=== PATIENT | male | born 1955 | race Caucasian/White ===

== ENCOUNTER 2017-03-23 10:18 | Emergency (ER) | payer OTHER ==
[~2017-03-23] VITALS: Ht 180.3 cm; Wt 136.1 kg
--- NOTE | ~2017-03-23 | EKG ---
[facility] [place] [address] ELECTROCARDIOGRAM REPORT Name: CARISSA GUILLEN Room #: REG MATT Villarreal#: [id number] Admission: 03/23/17 Attend Phys: Discharge: Date of : 51 Report #: [id number] THIS REPORT FOR: //name// [facility] ED Test Date: 2017-03-23 Test Time: 10:25:40 Pat Name: CARISSA GUILLEN Department: Room: Gender: M Care Rep: Amy DRUMMOND : 1955 Requested By: Gabi Gracia Order Number: [id number] MD: Rocco Gipson Measurements Intervals [place] Rate: 108 P: 95 [place]: 172 QRS: -3 QRSD: 110 T: 90 QT: 329 QTc: 441 Interpretive Statements Sinus tachycardia Probable left atrial enlargement Abnormal R-wave progression, late transition LVH with IVCD and secondary repol abnrm No previous ECG available for comparison Electronically Signed On 03-23-2017 13:58:00 CDT by Rocco Gipson [email or web address] <ELECTRONICALLY SIGNED> By: Rocco Gipson MD 03/23/17 1358 D: 10/1024 24 Rocco Gipson MD /BLAKE
--- NOTE | ~2017-03-23 | EKG ---
[address] [place] [address] ELECTROCARDIOGRAM REPORT Name: CARISSA GUILLEN Room #: DEP MATT Villarreal#: [id number] Admission: 03/23/17 Attend Phys: Discharge: 03/23/17 Date of : 51 Report #: [id number] THIS REPORT FOR: //name// [facility] ED Test Date: 2017-03-23 Test Time: 16:50:06 Pat Name: CARISSA GUILLEN Department: Room: Gender: M Physicist [place]: SUSAN : 1955 Requested By: Gabi Gracia Order Number: [id number] MD: Measurements Intervals [place] Rate: 127 P: 113 [place]: 110 QRS: -6 QRSD: 98 T: 76 QT: 253 QTc: 368 Interpretive Statements Sinus tachycardia Abnormal R-wave progression, late transition LVH with secondary repolarization abnormality Inferior infarct, acute (RCA) Probable RV involvement, suggest recording right precordial leads No previous ECG available for comparison [email or web address] By: 1650 165 Epiphany EpiphanyMD /EPI
--- NOTE | ~2017-03-23 | EKG ---
[address] [place] [address] ELECTROCARDIOGRAM REPORT Name: CARISSA GUILLEN [id number] Admission: 03/23/17 Attend Phys: Discharge: 03/23/17 Date of : 51 Report #: [id number] THIS REPORT FOR: //name// [facility] ED Test Date: 2017-03-23 Test Time: 16:50:06 Pat Name: CARISSA GUILLEN Department: Room: Gender: [employer]: SUSAN : 1955 Requested By: Gabi Gracia Order Number: [id number] MD: Marcellus Guevara Measurements Intervals [place] Rate: 127 P: 113 [place]: 110 QRS: -6 QRSD: 98 T: 76 QT: 253 QTc: 368 Interpretive Statements Sinus tachycardia Abnormal R-wave progression, late transition LVH with secondary repolarization abnormality Cannot rule out inferior infarct, possibly acute Compared to ECG 03/23/2017 10:25:40 Recommend repeat tracing in the absence of baseline artifact Electronically Signed On 03-24-2017 8:43:59 CDT by Marcellus Guevara [email or web address] <ELECTRONICALLY SIGNED> By: Marcellus Guevara MD, [facility] 03/24/17 0843 [id number] 1650 Marcellus Guevara MD, [facility] /EPI
[~2017-03-23 10:18] MED LIST: CREATINE PO; FISHOIL PO; MULTIVITAMINS PO; OSTEO BIFLEX PO; TUMS CHEWA500 MG/11 PO
[2017-03-23 11:01] LABS: HEMATOCRIT 44.6 % (42.0-52.0); HEMOGLOBIN 15.1 gm/dL (14.0-18.0); MCH 26.8 pg (26.0-34.0); MCHC 33.9 g/dL (28.0-37.0); MCV 79.2 fL (80.0-100.0); PLATELET COUNT 223 thou/uL (150-400); RBC 5.63 mil/uL (4.50-6.00); RDW 15.5 % (10.5-14.5); WBC 13.5 thou/uL (4.0-11.0)
[2017-03-23 11:03] LABS: CALCIUM 10.7 mg/dL (8.5-10.1); CREATININE 1.4 mg/dL (0.7-1.3); POTASSIUM 3.7 mmol/L (3.5-5.1)
[2017-03-23 11:08] LABS: MANUAL DIFF YES
[2017-03-23 11:09] LABS: ALBUMIN 2.4 g/dL (3.4-5.0); MAGNESIUM 2.5 mg/dL (1.8-2.4); TOTAL BILIRUBIN 2.9 mg/dL (<0.1-1.0); TOTAL PROTEIN 7.9 g/dL (6.4-8.2)
[2017-03-23] MEDS ORDERED: PERCOCET 10-321 EACH PO (11:40)
[2017-03-23] MEDS ORDERED: BENADRYL25 MG PO (11:40)
[2017-03-23] MEDS ORDERED: MAXZIDE-25 MG1 EACH PO (11:40)
[2017-03-23 11:47] LABS: TOTAL CELL COUNT 100
[2017-03-23 11:48] LABS: ABSOLUTE NEUTROPHILS 11.2 thou/uL (1.4-8.2); ANISOCYTOSIS 1+; ATYPICAL LYMPHS 2 %
[2017-03-23 13:16] LABS: URINE BILIRUBIN 2+ (Negative); URINE BLOOD 1+ (Negative); URINE GLUCOSE-RANDOM* TRACE (Negative); URINE KETONES NEGATIVE (Negative); URINE NITRITE NEGATIVE (Negative); URINE PROTEIN (DIPSTICK) 1+ (Negative); URINE SPECIFIC GRAVITY 1.025 (1.003-1.035)
[2017-03-23 13:19] LABS: ICTOTEST (BILI CONFIRMATORY) Positive (Negative); URINE COLOR DARK YELLOW
[2017-03-23 13:51] LABS: BACTERIA 1-9 Few /HPF (None Seen); SQUAMOUS 0-3 Few /LPF (0-3); URINE RBC 0-2 Rare /HPF (0-2); URINE WBC 0-5 Rare /HPF (0-5)
[2017-03-23 13:52] LABS: COARSE GRANULAR CASTS 0-3 Few /LPF (None Seen); CRYSTALS None Seen /LPF (None Seen)
[2017-03-23 17:15] LABS: INR 1.1; PROTIME 11.1 Seconds (9.3-11.4)
[2017-03-23 19:30] VITALS: BP 111/90
== END 2017-03-23 19:30 | disposition short-term general hospital (02) ==
LOC: ER 10:18
PROVIDERS: Physician Assistant
DX: M46.40 Discitis, unspecified, site unspecified (principal); N17.9 Acute kidney failure, unspecified; K92.2 Gastrointestinal hemorrhage, unspecified; E80.7 Disorder of bilirubin metabolism, unspecified; E87.1 Hypo-osmolality and hyponatremia; L03.116 Cellulitis of left lower limb; L03.115 Cellulitis of right lower limb; G89.29 Other chronic pain; K21.9 Gastro-esophageal reflux disease without esophagitis; Z98.890 Other specified postprocedural states; Z88.1 Allergy status to other antibiotic agents; Z88.8 Allergy status to other drugs, medicaments and biological substances